=== PATIENT | male | born 1985 | race Caucasian/White ===

== ENCOUNTER 2020-12-02 13:26 | Emergency (ER) | payer OTHER ==
[~2020-12-02] VITALS: Ht 175.3 cm; Wt 81.7 kg
[2020-12-02 15:53] LABS: ABSOLUTE LYMPHOCYTES 0.5 thou/uL (0.8-5.3); ABSOLUTE MONOCYTES 0.3 thou/uL (0.0-1.2); ABSOLUTE NEUTROPHILS 4.4 thou/uL (1.6-8.1); BASOPHILS 0.4 %; HEMATOCRIT 46.8 % (42.0-52.0); HEMOGLOBIN 16.3 gm/dL (14.0-18.0); LYMPHOCYTES 9.4 %; MCH 29.1 pg (26.0-34.0); MCHC 34.9 g/dL (28.0-37.0); MCV 83.5 fL (80.0-100.0); MONOCYTES 6.5 %; MPV 7.7 fl. (7.2-11.1); NUCLEATED RBCS 0 /100WBC; PLATELET COUNT* 125 thou/uL (150-400); POLYS 83.7 %; RBC 5.61 mil/uL (4.50-6.00); RDW-CV 13.3 % (10.5-14.5); WBC 5.3 thou/uL (4.0-11.0)
[2020-12-02 16:11] LABS: CALCIUM 8.1 mg/dL (8.5-10.1); CREATININE 1.3 mg/dL (0.6-1.3); POTASSIUM 4.1 mmol/L (3.5-5.1)
[2020-12-02 16:15] LABS: ALBUMIN 3.7 g/dL (3.4-5.0); TOTAL BILIRUBIN 0.6 mg/dL (<0.1-1.0); TOTAL PROTEIN 7.4 g/dL (6.4-8.2)
[2020-12-02] MEDS ORDERED: FLEXERIL PO (16:44)
[2020-12-02] MEDS ORDERED: VENTOLIN HFA 1818 GM INH (16:44)
[2020-12-02] MEDS ORDERED: ZOFRAN ODT4 MG PO (16:44)
[2020-12-02 16:57] VITALS: BP 121/70
--- NOTE | 2020-12-03 10:34 | EKG ---
[place] [address] ELECTROCARDIOGRAM REPORT Name: ESTEFANIA HOOVER Room: [facility]#: [id number] Admission: 12/02/20 Attend Phys: Discharge: 12/02/20 Date of : 87 Date of Service: 12/02/20 1544 Report #: [id number] THIS REPORT FOR: //name// [facility] ED Test Date: 2020-12-02 Test Time: 15:44:10 Pat Name: ESTEFANIA HOOVER Department: Room: Gender: M Transmission Line Engineer: MICHEL : [id number] Requested By: Ana Talley Order Number: [id number] MD: Alf Ng Measurements Intervals [place] Rate: 77 P: 28 SC: 135 QRS: 10 QRSD: 81 T: 17 QT: 350 QTc: 397 Interpretive Statements Sinus rhythm No previous ECG available for comparison Electronically Signed On 12-03-2020 10:34:25 CDT by Alf Ng [email or web address] <ELECTRONICALLY SIGNED> By: Alf Ng MD, [facility] 12/03/20 1034 1544 1544 Alf Ng MD, [facility] /EPI
== END 2020-12-02 16:59 | disposition home or self-care (01) ==
LOC: M.ERS 13:26
PROVIDERS: Nurse Practitioner Family
DX: U07.1 COVID-19 (principal); R11.10 Vomiting, unspecified; R19.7 Diarrhea, unspecified